=== PATIENT | male | born 1955 | race Caucasian/White ===

== ENCOUNTER 2020-10-03 17:18 | Inpatient (IN) | payer MEDICARE, OTHER ==
[~2020-10-03] VITALS: Ht 175.3 cm; Wt 103.1 kg
[2020-10-03] MEDS ORDERED: SODIUM CHLORIDE 0.9% 1000ML 1,000 ML IV ONE (17:45)
[2020-10-03 18:04] LABS: BASOPHILS # (AUTO) 0.1 (0.0-0.1); BASOPHILS % 0.6 % (0.0-1.0); EOSINOPHILS # (AUTO) 0.2 (0.0-0.4); EOSINOPHILS % 2.1 % (0.0-6.0); HEMATOCRIT 39.2 % (38.2-49.6); HEMOGLOBIN 13.1 g/dL (14.0-18.0); LYMPHOCYTES # (AUTO) 1.7 (1.0-3.2); LYMPHOCYTES % 20.8 % (18.0-39.1); MEAN CORPUSCULAR HEMOGLOBIN 29.9 pg (28-32); MEAN CORPUSCULAR HGB CONC 33.4 g/dL (31-35); MEAN CORPUSCULAR VOLUME 89.5 fL (81-99); MONOCYTES # (AUTO) 0.8 (0.2-0.8); MONOCYTES % 10.2 % (4.4-11.3); NEUTROPHILS # (AUTO) 5.3 (2.1-6.9); NEUTROPHILS % 65.9 % (38.7-80.0); PLATELET COUNT 247 x10e3/uL (140-360); RED BLOOD COUNT 4.38 x10e6/uL (4.3-5.7); RED CELL DISTRIBUTION WIDTH 12.4 % (11.7-14.4)
[2020-10-03 18:10] LABS: CLARITY,URINE CLEAR (CLEAR); COLOR,URINE YELLOW (YELLOW); LEUKOCYTE ESTERASE ,URINE NEGATIVE (NEGATIVE); NITRITE,URINE NEGATIVE (NEGATIVE)
[2020-10-03 18:11] LABS: KETONES,URINE 1+ (NEGATIVE); PROTEIN,URINE DIPSTICK 1+ (NEGATIVE); URINE UROBILINOGEN 0.2 mg/dL (0.2 - 1)
[2020-10-03 18:21] LABS: BACTERIA,URINE FEW /HPF
[2020-10-03 18:22] LABS: ALBUMIN 3.6 g/dL (3.5-5.0); ALBUMIN/GLOBULIN RATIO 1.1 (0.8-2.0); AMORPHOUS SEDIMENT,URINE FEW (FEW); ANION GAP 14.6 mmol/L (8-16); CALCIUM 8.7 mg/dL (8.4-10.2); CREATININE, SERUM 2.16 mg/dL (0.72-1.25); POTASSIUM 4.6 mmol/L (3.5-5.1)
[2020-10-03 18:29] LABS: CREATINE KINASE MB 1.5 ng/mL (0-5.0)
[2020-10-03] MEDS ORDERED: IBUPROFEN 600 MG TAB PO STA (19:59)
[2020-10-03] MEDS ORDERED: ACETAMINOPHEN 325 MG TAB PO ONE (20:00)
[2020-10-03] MEDS ORDERED: ONDANSETRON HCL INJ 2MG/ML 2ML 2 MG/ML VIAL IV PRN (20:15)
[2020-10-03] MEDS ORDERED: DEXTROSE 50% SYRINGE 50 ML IV PRN (20:15)
[2020-10-03] MEDS: INSULIN REGULAR, HUMAN 100 UNIT/1 ML 3ML VIAL SQ SCH ×2 (20:56→20:58)
[2020-10-03] MEDS: SODIUM CHLORIDE 0.9% 1000ML 1,000 ML IV SCH (20:57)
[2020-10-03 21:35] VITALS: BP 137/67
[2020-10-03 22:00] VITALS: BP 137/67
[2020-10-03] MEDS ORDERED: OMEPRAZOLE20 M1 PO (23:43)
[2020-10-03] MEDS ORDERED: GABAPENTIN400 MG PO (23:43)
[2020-10-03] MEDS ORDERED: BACLOFEN20 MG PO (23:43)
[2020-10-03] MEDS ORDERED: HUMULIN R100 UNIT/2 SQ (23:43)
[2020-10-03] MEDS ORDERED: NAPROSYN500 MG PO (23:43)
[2020-10-03] MEDS ORDERED: LISINOPRIL10 MG PO (23:43)
[2020-10-03] MEDS ORDERED: JARDIANCE25 MG PO (23:43)
[2020-10-03] MEDS ORDERED: TRESIBA100 UNIT/1 SQ (23:43)
[2020-10-03] MEDS ORDERED: DIPHENHYDRAMINE25 MG PO (23:43)
[2020-10-03] MEDS ORDERED: ASPIRIN CHEW81 MG PO (23:43)
[2020-10-03] MEDS ORDERED: BC POWDER PACK1 EAC1 SL (23:43)
[2020-10-03] MEDS ORDERED: METOPROLOL HCT PO (23:43)
[2020-10-03] MEDS ORDERED: ATORVASTATIN CA20 MG PO (23:43)
[2020-10-03] MEDS ORDERED: FAMOTIDINE20 MG PO (23:43)
[2020-10-03] MEDS ORDERED: HYDROCHLOROTHIA25 MG PO (23:43)
[2020-10-03] MEDS ORDERED: METFORMIN HCL500 MG PO (23:43)
[2020-10-04] VITALS (8 sets, daily range): BP systolic 110–152; BP diastolic 50–70
[2020-10-04 02:38] LABS: CREATINE KINASE MB 1.6 ng/mL (0-5.0)
[2020-10-04 05:37] LABS: BASOPHILS # (AUTO) 0.1 (0.0-0.1); BASOPHILS % 0.8 % (0.0-1.0); EOSINOPHILS # (AUTO) 0.3 (0.0-0.4); EOSINOPHILS % 4.7 % (0.0-6.0); HEMOGLOBIN 12.8 g/dL (14.0-18.0); LYMPHOCYTES # (AUTO) 2.6 (1.0-3.2); LYMPHOCYTES % 36.7 % (18.0-39.1); MEAN CORPUSCULAR HEMOGLOBIN 30.3 pg (28-32); MEAN CORPUSCULAR HGB CONC 33.7 g/dL (31-35); MEAN CORPUSCULAR VOLUME 89.8 fL (81-99); MONOCYTES # (AUTO) 0.9 (0.2-0.8); MONOCYTES % 12.1 % (4.4-11.3); NEUTROPHILS # (AUTO) 3.2 (2.1-6.9); NEUTROPHILS % 45.4 % (38.7-80.0); PLATELET COUNT 213 x10e3/uL (140-360); RED BLOOD COUNT 4.23 x10e6/uL (4.3-5.7); RED CELL DISTRIBUTION WIDTH 12.3 % (11.7-14.4)
[2020-10-04 05:58] LABS: ALBUMIN 3.2 g/dL (3.5-5.0); CALCIUM 8.2 mg/dL (8.4-10.2); CHOL/HDL RATIO 3.2 (3.9-4.7); CREATININE, SERUM 1.33 mg/dL (0.72-1.25)
[2020-10-04 06:23] LABS: CREATINE KINASE MB 4.5 ng/mL (0-5.0)
[2020-10-04] MEDS: SODIUM CHLORIDE 0.9% 1000ML 1,000 ML IV SCH ×2 (06:25→16:24)
[2020-10-04] MEDS: INSULIN REGULAR, HUMAN 100 UNIT/1 ML 3ML VIAL SQ SCH (07:30)
[2020-10-04] MEDS ORDERED: DEXTROSE 50% SYRINGE 50 ML IV PRN (11:00)
[2020-10-04] MEDS ORDERED: BACLOFEN 10 MG TAB PO PRN (11:00)
[2020-10-04] MEDS: INSULIN LISPRO 100 UNIT/1 ML 3ML VIAL SQ SCH ×3 (11:30→21:20)
[2020-10-04 15:20] LABS: FREE T4 (FREE THYROXINE) 1.05 ng/dL (0.8-1.8); THYROID STIMULATING HORMONE 0.048 uIU/mL (0.350-4.940)
[2020-10-04] MEDS: INSULIN DEGLUDEC 30 UNIT SQ SCH (16:24)
[2020-10-04] MEDS: GABAPENTIN 400 MG CAP PO SCH (16:24)
[2020-10-04] MEDS: INSULIN GLARGINE 100 UNITS/ML VIAL SQ SCH (16:25)
[2020-10-04] MEDS ORDERED: METOPROLOL HCT PO SCH (21:00)
[2020-10-04] MEDS: HEPARIN SOD (PORCINE) 5,000 UNIT/ML VIAL SC SCH (21:30)
[2020-10-04] MEDS: LISINOPRIL 10 MG TAB PO SCH (21:50)
[2020-10-04] MEDS: ATORVASTATIN 40 MG TAB PO SCH (21:50)
[2020-10-05] VITALS (7 sets, daily range): BP systolic 122–134; BP diastolic 70–76
[2020-10-05] MEDS: SODIUM CHLORIDE 0.9% 1000ML 1,000 ML IV SCH ×2 (04:53→12:45)
[2020-10-05 05:56] LABS: BASOPHILS % 0.5 % (0.0-1.0); EOSINOPHILS # (AUTO) 0.3 (0.0-0.4); HEMATOCRIT 39.4 % (38.2-49.6); HEMOGLOBIN 13.3 g/dL (14.0-18.0); LYMPHOCYTES # (AUTO) 1.9 (1.0-3.2); LYMPHOCYTES % 29.7 % (18.0-39.1); MEAN CORPUSCULAR HEMOGLOBIN 30.2 pg (28-32); MEAN CORPUSCULAR HGB CONC 33.8 g/dL (31-35); MEAN CORPUSCULAR VOLUME 89.5 fL (81-99); MONOCYTES # (AUTO) 0.7 (0.2-0.8); MONOCYTES % 11.7 % (4.4-11.3); NEUTROPHILS # (AUTO) 3.3 (2.1-6.9); NEUTROPHILS % 52.8 % (38.7-80.0); PLATELET COUNT 218 x10e3/uL (140-360); RED CELL DISTRIBUTION WIDTH 12.2 % (11.7-14.4)
[2020-10-05 06:29] LABS: ALBUMIN 3.4 g/dL (3.5-5.0); ALBUMIN/GLOBULIN RATIO 1.1 (0.8-2.0); ANION GAP 10.1 mmol/L (8-16); CALCIUM 8.8 mg/dL (8.4-10.2); CREATININE, SERUM 0.81 mg/dL (0.72-1.25); POTASSIUM 4.1 mmol/L (3.5-5.1)
[2020-10-05] MEDS: INSULIN LISPRO 100 UNIT/1 ML 3ML VIAL SQ SCH ×4 (07:30→19:52)
[2020-10-05] MEDS: PANTOPRAZOLE SOD 40 MG TABEC PO SCH (07:52)
[2020-10-05] MEDS: INSULIN DEGLUDEC 30 UNIT SQ SCH ×2 (08:09→16:25)
[2020-10-05] MEDS: ASPIRIN 81 MG CHEW TAB PO SCH (08:26)
[2020-10-05] MEDS: GABAPENTIN 400 MG CAP PO SCH ×2 (08:26→17:37)
[2020-10-05] MEDS: INSULIN GLARGINE 100 UNITS/ML VIAL SQ SCH ×2 (08:27→17:38)
[2020-10-05] MEDS: HEPARIN SOD (PORCINE) 5,000 UNIT/ML VIAL SC SCH ×2 (08:27→21:30)
[2020-10-05] MEDS: LISINOPRIL 10 MG TAB PO SCH ×2 (08:27→17:37)
[2020-10-05] MEDS ORDERED: LISINOPRIL 10 MG TAB PO SCH (09:00)
[2020-10-05] MEDS ORDERED: SODIUM CHLORIDE 0.9% 100 ML ONE (14:40)
[2020-10-05] MEDS ORDERED: IOPAMIDOL 370 MG/ML 200 ML INFUS..BTL INJ ONE (14:40)
[2020-10-05] MEDS: ATORVASTATIN 40 MG TAB PO SCH (20:49)
[2020-10-06 00:23] VITALS: BP 136/75
[2020-10-06] MEDS: SODIUM CHLORIDE 0.9% 1000ML 1,000 ML IV SCH ×2 (04:24→08:15)
[2020-10-06 05:03] VITALS: BP 119/68
[2020-10-06] MEDS: INSULIN LISPRO 100 UNIT/1 ML 3ML VIAL SQ SCH ×2 (07:30→11:30)
[2020-10-06 07:52] VITALS: BP 127/68
[2020-10-06] MEDS: GABAPENTIN 400 MG CAP PO SCH (08:35)
[2020-10-06] MEDS: INSULIN DEGLUDEC 30 UNIT SQ SCH (08:35)
[2020-10-06] MEDS: PANTOPRAZOLE SOD 40 MG TABEC PO SCH (08:35)
[2020-10-06] MEDS: LISINOPRIL 10 MG TAB PO SCH (08:35)
[2020-10-06] MEDS: ASPIRIN 81 MG CHEW TAB PO SCH (08:35)
[2020-10-06 08:40] VITALS: BP 127/68
[2020-10-06] MEDS: HEPARIN SOD (PORCINE) 5,000 UNIT/ML VIAL SC SCH (08:58)
[2020-10-06] MEDS: INSULIN GLARGINE 100 UNITS/ML VIAL SQ SCH (09:23)
[2020-10-06] MEDS ORDERED: ONDANSETRON HCL 4 MG ORAL DISINTEGRATING TAB PO PRN (10:30)
[2020-10-06 11:16] VITALS: BP 141/65
== END 2020-10-06 13:00 | disposition home or self-care (01) | DRG 68 ==
LOC: ER 17:40 → ERHOLD 20:07 → MED/SURG 21:36 → OBSVTOIN 10-05 09:18
PROVIDERS: ADMIT Internal Medicine; ATTEND Internal Medicine
DX: I65.23 Occlusion and stenosis of bilateral carotid arteries (principal); E86.0 Dehydration; E11.69 Type 2 diabetes mellitus with other specified complication; E78.5 Hyperlipidemia, unspecified; I10 Essential (primary) hypertension; I25.10 Atherosclerotic heart disease of native coronary artery without angina pectoris
CPT/HCPCS: 36415; 70450; 70498; 71045; 71046; 80053; 80061; 81001; 82024; 82044; 82150; 82550; 82553; 82948; 83036; 83880; 84439; 84443; 84484; 85025; 93005; 93306; 93880; 99284; G0378; J1644; J1815; J7030; J7050; Q9967; U0002